=== PATIENT | female | born 1955 | race Asian ===

== ENCOUNTER 2016-10-30 15:46 | Emergency (ER) | payer OTHER ==
[2016-10-30 16:40] LABS: BILIRUBIN,URINE NEGATIVE (NEGATIVE); PH,URINE 7.5 PH (5.0-7.5)
[2016-10-30 16:44] LABS: UA CHARGE (STRIP ONLY) YES; UR CULTURE IF IND NOT INDICATED
[2016-10-30] MEDS ORDERED: ACETAMINOPHEN 325 MG TABLET PO STA ×2 (18:23→19:33)
[2016-10-30] MEDS ORDERED: SODIUM CHLORIDE 0.9% 1,000 ML IV ONE (18:23)
[2016-10-30] MEDS ORDERED: ACETAMINOPHEN 325 MG TABLET PO ONE ×2 (18:37→19:41)
--- NOTE | 2016-10-30 18:39 | ED Physician Documentation ---
History of Present Illness - Stated complaint Stated Complaint: FEMALE - Chief complaint Chief Complaint: UTI - Additonal information Additional information: 61-year-old female with a history of chronic kidney disease and a single kidney who presents with a complaint of fever, chills, blood in the urine and lower urinary symptoms for the past 2 days. She is felt very tired and weak. She has not had any cough or pulmonary complaints there is no chest pain or shortness of breath. She has no ear nose and throat symptoms. She did have some mild diarrhea. She believes she is having a urinary tract infection. She does not know which kidney is atrophied. Review of systems: For pertinent positive and negatives in the review of systems please see the history of present illness, otherwise all other systems have been reviewed and are negative. Yanet disclaimer: Parts of this medical record were created using voice recognition technology. Because of the inherent limitations of this system, occasional same sounding word substitutions do occur and persist despite proofreading. Please read the document for context. Review of Systems Constitutional: reports: Fever, Chills, Myalgias Respiratory: denies: Dyspnea, Cough GI: denies: Abdominal Pain, Abdominal Swelling : reports: Dysuria, Frequency, Hesitancy, Unable to Void PD PAST MEDICAL HISTORY - Past Medical History Past Medical History: Yes : Renal insuffiency, Other Other Past Medical History: 1 kidney - Past Surgical History Past Surgical History: Yes General: Cholecystectomy - Present Medications Home Medications: Ambulatory Orders Medication Instructions Recorded Confirmed Benazepril HCl 10 mg ORAL DAILY 10/30/16 10/30/16 Triamterene/Hydrochlorothiazid 1 tab ORAL DAILY 10/30/16 10/30/16 [Triamterene-Hctz 75-50 mg Tab] - Allergies Allergies/Adverse Reactions: Allergies Allergy/AdvReac Type Severity Reaction Status Date / Time ciprofloxacin Allergy Hallucinati Verified 10/30/16 15:59 ons diphenhydramine HCl * Allergy Anxiety Verified 10/30/16 15:59 [From Benadryl] hydromorphone HCl * Allergy Unknown Verified 10/30/16 15:59 [From Dilaudid] metronidazole Allergy Hallucinati Verified 10/30/16 15:59 ons NSAIDS (Non-Steroidal Allergy Unknown Verified 10/30/16 18:55 Anti-Inflamma - Social History Does the pt smoke?: No Smoking Status: Never smoker Does the pt drink ETOH?: No Does the pt have substance abuse?: No - Immunizations Immunizations are current?: Yes PD ED PE NORMAL - Vitals Vital signs reviewed: Yes - General General: Alert and oriented X 3, No acute distress, Well developed/nourished, Other (Well-appearing P male who appears female who appears slightly warm and flushed in appearance) - HEENT HEENT: Atraumatic - Neck Neck: Supple, no meningeal sign - Cardiac Cardiac: RRR, No murmur, No gallop, No rub - Respiratory Respiratory: No respiratory distress, Clear bilaterally - Abdomen Abdomen: Normal bowel sounds, Soft, Non tender, Non distended - Derm Derm: Normal color, Warm and dry, No rash, Other - Neuro Neuro: Alert and oriented X 3, No motor deficit, No sensory deficit - Psych Psych: Normal mood, Normal affect Results - Vitals Vitals: Vital Signs - 24 hr 10/30/16 10/30/16 15:54 17:41 Temperature 36 C L 37.1 C Heart Rate 117 H 81 Respiratory 20 15 Rate Blood Pressure 137/84 H 137/87 H O2 Saturation 97 97 Oxygen O2 Source Room air - Labs Labs: Laboratory Tests 10/30/16 10/30/16 10/30/16 16:30 18:45 18:45 WBC 17.7 H RBC 4.82 Hgb 14.8 Hct 43.3 MCV 89.8 MCH 30.7 MCHC 34.2 RDW 12.9 Plt Count 223 MPV 9.1 Neut # 13.6 H Lymph # 2.6 Davie # 1.2 H Eos # 0.1 Baso # 0.1 Absolute Nucleated RBC 0.00 Nucleated RBCs 0.0 Sodium 135 Potassium 3.6 Chloride 98 L Carbon Dioxide 24 Anion Gap 13.0 BUN 25 H Creatinine 1.2 H Estimated GFR (MDRD) 46 L Glucose 107 H Calcium 9.6 Total Bilirubin 0.8 AST 27 ALT 21 Alkaline Phosphatase 96 Total Protein 8.4 H Albumin 4.1 Globulin 4.3 H Albumin/Globulin Ratio 1.0 Lipase 32 Urine Color YELLOW Urine Clarity CLEAR Urine pH 7.5 Ur Specific [place] 1.015 Urine Protein NEGATIVE Urine Glucose (UA) NEGATIVE Urine Ketones NEGATIVE Urine Occult Blood NEGATIVE Urine Nitrite NEGATIVE Urine Bilirubin NEGATIVE Urine Urobilinogen 0.2 (NORMAL) Ur Leukocyte Esterase NEGATIVE Ur Microscopic Review NOT INDICATED Urine Culture Comments NOT INDICATED 10/30/16 22:30 WBC RBC Hgb Hct MCV MCH MCHC RDW Plt Count MPV Neut # Lymph # Davie # Eos # Baso # Absolute Nucleated RBC Nucleated RBCs Sodium Potassium Chloride Carbon Dioxide Anion Gap BUN Creatinine Estimated GFR (MDRD) Glucose Calcium Total Bilirubin AST ALT Alkaline Phosphatase Total Protein Albumin Globulin Albumin/Globulin Ratio Lipase Urine Color YELLOW Urine Clarity CLEAR Urine pH 6.0 Ur Specific [place] 1.010 Urine Protein NEGATIVE Urine Glucose (UA) NEGATIVE Urine Ketones NEGATIVE Urine Occult Blood NEGATIVE Urine Nitrite NEGATIVE Urine Bilirubin NEGATIVE Urine Urobilinogen 0.2 (NORMAL) Ur Leukocyte Esterase NEGATIVE Ur Microscopic Review NOT INDICATED Urine Culture Comments NOT INDICATED PD MEDICAL DECISION MAKING - ED course Complexity details: reviewed old records, reviewed results, re-evaluated patient , d/w patient ED course: 61-year-old female who presents mainly with a complaint of malaise and lower urinary symptoms. Her lower urinary symptoms are quite suggestive of a lower urinary tract infection however her urine appears normal. It was noted that she is palpably warm to touch so workup ensued. I was concerned about her having a sole kidney the possibility of having a kidney stone so workup ensued. She is given 1 L of saline and blood work shows a white count of 17,000. Her renal function shows a depressed GFR but not significantly so. We did recheck her urine because her symptoms are so consistent with UTI thought that perhaps the sample had been mixed up. Repeat urinalysis is normal. Noncontrast CT scan shows a possibility of a little colonic thickening at the splenic flexure and also diverticuli without diverticulitis. Given the patient's elevated white count and urinary symptoms I am entertaining the possibility of possibly mild diverticulitis in the sigmoid colon that might be causing some of her bladder symptoms. She was given 3 g of Unasyn here in the emergency department and I will treat her for possible diverticulitis with monotherapy with Augmentin since she is Flagyl allergic. At this point in time she looks good she agrees to increase fluids watch her symptoms closely and return if worse. Disposition: To home Clinical impression, suprapubic pain with urinary symptoms without evidence urinary tract infection suspect possible mild retro-vesicular diverticulitis
[2016-10-30 18:52] LABS: BASOPHILS # (AUTO) 0.1 10^3/uL (0.0-0.1); BASOPHILS % (AUTO) 0.4 %; EOSINOPHILS # (AUTO) 0.1 10^3/uL (0.0-0.7); EOSINOPHILS % (AUTO) 0.8 %; HCT - HEMATOCRIT 43.3 % (37.0-47.0); HGB - HEMOGLOBIN 14.8 g/dL (12.0-16.0); LYMPHOCYTES # (AUTO) 2.6 10^3/uL (1.5-3.5); LYMPHOCYTES % (AUTO) 14.7 %; MEAN CORPUSCULAR HEMOGLOBIN 30.7 pg (27.0-31.0); MEAN CORPUSCULAR HGB CONC 34.2 g/dL (32.0-36.0); MEAN CORPUSCULAR VOLUME 89.8 fL (81.0-99.0); MEAN PLATELET VOLUME 9.1 fL (7.9-10.8); MONOCYTES # (AUTO) 1.2 10^3/uL (0.0-1.0); NEUTROPHILS # (AUTO) 13.6 10^3/uL (1.5-6.6); NEUTROPHILS % (AUTO) 77.1 %; RED BLOOD COUNT 4.82 10^6/uL (4.20-5.40); RED CELL DISTRIBUTION WIDTH 12.9 % (12.0-15.0); UNCORRECTED WHITE BLOOD COUNT 17.7 x10^3/uL; WHITE BLOOD COUNT 17.7 x10^3/uL (4.8-10.8)
[2016-10-30 19:08] LABS: BILIRUBIN,TOTAL 0.8 mg/dL (0.2-1.0); CALCIUM 9.6 mg/dL (8.5-10.3); CREATININE 1.2 mg/dL (0.4-1.0); POTASSIUM 3.6 mmol/L (3.5-5.0); TOTAL PROTEIN 8.4 g/dL (6.7-8.2)
--- NOTE | 2016-10-30 20:22 | CT Report ---
EXAM: CT ABDOMEN AND PELVIS EXAM DATE: 10/30/2016 07:51 PM. CLINICAL HISTORY: Lower abdominal pain COMPARISONS: None. TECHNIQUE: Routine axial helical CT imaging was performed through the abdomen and pelvis without IV c ontrast. Reconstructions: Coronal and sagittal. In accordance with CT protocol optimization, one or more of the following dose reduction techniques w ere utilized for this exam: automated exposure control, adjustment of mA and/or KV based on patient s ize, or use of iterative reconstructive technique. FINDINGS: Lung Bases: Unremarkable. Abdominal Organs: Noncontrast images of the abdominal organs are grossly unremarkable. The kidneys de monstrate no stones or hydronephrosis. 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 Gallbladder/bile ducts: The gallbladder is surgically absent. No significant bile duct dilatation. Peritoneal Cavity: Stomach and small bowel demonstrate no acute abnormalities. There is distal colon diverticulosis without evidence of diverticulitis. There is possible mild wall thickening involving c olon at the splenic flexure. The appendix is normal. No intraperitoneal free air or free fluid. No en larged mesenteric or retroperitoneal lymph nodes. Pelvic Organs: No bladder stones or wall thickening. Noncontrast images of the visualized pelvic orga ns are unremarkable. Vasculature: Unremarkable. Other: There is moderate L4-L5 lumbar spine degenerative disease. IMPRESSION: 1. The kidneys demonstrate no stones or hydronephrosis. 2. There is distal colon diverticulosis without evidence of diverticulitis. 3. Questionable mild wall thickening with adjacent fat stranding involving colon at the splenic flexu re. This could represent mild colitis. 4. No evidence of appendicitis or bowel obstruction. Referring Provider Line: [phone] SITE ID: [id number]
[2016-10-30] MEDS ORDERED: AMPICILLIN/SULBACTAM 3 GM in SODIUM CHLORIDE 0.9% MINIBAG 100 ML IV STA (20:50)
[2016-10-30] MEDS ORDERED: METHOTREXATE 50 MG/2 ML MDV IM STA (23:09)
[2016-10-30 23:37] LABS: BILIRUBIN,URINE NEGATIVE (NEGATIVE)
[2016-10-30 23:41] LABS: UA CHARGE (STRIP ONLY) YES; UR CULTURE IF IND NOT INDICATED
[2016-10-31 00:32] VITALS: BP 122/76
== END 2016-10-31 00:41 | disposition home or self-care (01) ==
LOC: ED 15:46
DX: R10.33 Periumbilical pain (principal); R30.0 Dysuria; N18.9 Chronic kidney disease, unspecified; Z90.5 Acquired absence of kidney
CPT/HCPCS: 36415; 74176; 80053; 81003; 83690; 85025; 99283; A9270; 81001; 87086